=== PATIENT | male | born 1945 | race Caucasian/White ===

== ENCOUNTER 2021-11-11 12:15 | Day surgery (SDC) | payer OTHER ==
[~2021-11-11] VITALS: Ht 157.5 cm; Wt 50.1 kg
[~2021-11-11 12:15] MED LIST: AMLO5 PO; DICL75ER PO; HYDCHL25 PO; HYDMOR2 PO; OXYACE5T PO; Prednisone20 MG PO; Robaxin500 MG PO
[2021-11-11] MEDS ORDERED: METO25ER (12:59)
[2021-11-11] MEDS ORDERED: ALBU2.5V5 (13:00)
[2021-11-11] MEDS ORDERED: SYMBICORT 80-10.2 GM (13:00)
--- NOTE | 2021-11-11 13:10 | NUR ---
11/11/21 1310 SITA CARDOSO TETRACAINE DROP AT 1308 PLEDGETTE PLACED AT 1310
== END 2021-11-11 14:03 | disposition home or self-care (01) ==
LOC: ORSCSDS 12:15
PROVIDERS: Ophthalmology
PROC: 08RJ3JZ Replacement of Right Lens with Synthetic Substitute, Percutaneous Approach (ICD-10-PCS; principal; 2021-11-11 13:30)
DX: H25.13 Age-related nuclear cataract, bilateral (principal); J44.9 Chronic obstructive pulmonary disease, unspecified; Z87.891 Personal history of nicotine dependence; Z79.899 Other long term (current) drug therapy
CPT/HCPCS: J2001; J2250; J3010; J3301; J7040; V2632

== ENCOUNTER 2021-12-30 10:59 | Day surgery (SDC) | payer OTHER ==
[~2021-12-30] VITALS: Ht 157.5 cm; Wt 52.4 kg
[~2021-12-30 10:59] MED LIST changes: +ALBU2.5V5; +METO25ER; +SYMBICORT 80-10.2 GM
[2021-12-30] MEDS ORDERED: IPRAT-ALBUT 0.5-3 ML INH (11:58)
--- NOTE | 2021-12-30 12:05 | NUR ---
12/30/21 1205 Georgette Chinchilla CALL LIGHT WITHIN REACH. TETRACAIN ON LEFT EYE AT 1200 PLEDGETT AT 1201
== END 2021-12-30 13:52 | disposition home or self-care (01) ==
LOC: ORSCSDS 10:59
PROVIDERS: Ophthalmology
PROC: 08RK3JZ Replacement of Left Lens with Synthetic Substitute, Percutaneous Approach (ICD-10-PCS; principal; 2021-12-30 12:30)
DX: H25.12 Age-related nuclear cataract, left eye (principal); I10 Essential (primary) hypertension; J44.9 Chronic obstructive pulmonary disease, unspecified; K21.9 Gastro-esophageal reflux disease without esophagitis; Z79.899 Other long term (current) drug therapy
CPT/HCPCS: J2001; J2250; J3010; J3301; J7040; V2632

== ENCOUNTER 2022-03-06 13:58 | Emergency (ER) | payer OTHER ==
[~2022-03-06] VITALS: Ht 162.6 cm; Wt 56.7 kg
[~2022-03-06 13:58] MED LIST changes: +IPRAT-ALBUT 0.5-3 ML INH
== END 2022-03-06 15:03 | disposition home or self-care (01) ==
LOC: ER 13:58
DX: U07.1 COVID-19 (principal); I10 Essential (primary) hypertension; J44.9 Chronic obstructive pulmonary disease, unspecified; Z91.040 Latex allergy status; Z79.899 Other long term (current) drug therapy
CPT/HCPCS: 99283

== ENCOUNTER → 2022-07-13 | Outpatient (CLI) | payer OTHER | END | disposition home or self-care (01) | LOC: PLD 08:25 → LAB SHORT 08:25 | DX: C44.619 Basal cell carcinoma of skin of left upper limb, including shoulder (principal) | CPT/HCPCS: 88305 ==

== ENCOUNTER → 2022-11-12 | Outpatient (CLI) | payer OTHER | END | disposition home or self-care (01) | LOC: LAB 08:14 → LAB SHORT 08:14 | DX: C44.319 Basal cell carcinoma of skin of other parts of face (principal) | CPT/HCPCS: 88305 ==

== ENCOUNTER → 2022-12-14 | Outpatient (CLI) | payer OTHER | END | disposition home or self-care (01) | LOC: LAB SHORT 14:44 → PLD 14:44 | DX: C44.329 Squamous cell carcinoma of skin of other parts of face (principal); L57.0 Actinic keratosis | CPT/HCPCS: 88305 ==

== ENCOUNTER → 2023-02-03 | Outpatient (CLI) | payer OTHER | END | disposition home or self-care (01) | LOC: LAB SHORT 12:12 → PLD 12:12 | DX: D48.5 Neoplasm of uncertain behavior of skin (principal) | CPT/HCPCS: 88305 ==

== ENCOUNTER → 2023-03-08 | Outpatient (CLI) | payer OTHER | LOC: LAB 14:50 | DX: I10 Essential (primary) hypertension (principal); E78.2 Mixed hyperlipidemia; R10.84 Generalized abdominal pain; R10.9 Unspecified abdominal pain ==

== ENCOUNTER → 2023-03-22 | Outpatient (CLI) | payer OTHER ==
[2023-03-22 20:09] LABS: Albumin, Blood 3.1 g/dL (3.4-5.0); Albumin/Globulin Ratio 0.8 (0.8-1.8); Bilirubin, Total 0.3 mg/dL (0.1-1.0); Bun/Creatinine Ratio 20.1 (12.0-20.0); Calcium, Blood 9.5 mg/dL (8.5-10.1); Creatinine, Blood 0.6 mg/dL (0.60-1.20); Globulin, Blood 3.8 g/dL (2.2-4.0); Potassium, Blood 3.4 mmol/L (3.5-5.5); Total Protein, Blood 6.9 g/dL (6.4-8.2)
== END ==
LOC: LAB 18:45 → LAB SHORT 18:45
PROVIDERS: Family Medicine
DX: I10 Essential (primary) hypertension (principal)
CPT/HCPCS: 80053

== ENCOUNTER → 2023-05-01 | Outpatient (CLI) | payer OTHER ==
[~2023-05-01] MED LIST changes: -ALBU2.5V5; +ALBU2.5V5 INH; +AMOCLA875 PO; +CEFDINIR300 M4 PO; +CYCL10 PO; +DUTASTERIDE0.5 M3 PO; +IBUP600 PO; +IPRATROPIUM BROMIDE INH; +KLOR-CON 1010 ME9 PO; +MAGNESIUM OXID500 MG PO; +MELATONIN5 M1 PO; +METOPROLOL TART25 MG PO; +MIRTAZAPINE PO; +OXYCODONE-ACET1 EAC3 PO; +PANT40 PO; +POTCHL20ER PO; +PRED20 PO; +Prednisone10 MG PO; +SODCHL1 PO; +Ventolin/Prove6.7 GM INH; +Zithromax Tri-500 MG PO; +Zofran4 MG PO
[2023-05-01 16:40] LABS: BASOPHILS ABSOLUTE AUTO 0.02 K/mm3 (0.00-0.23); BASOPHILS PERCENT AUTO 0 % (0-2); EOSINOPHILS PERCENT AUTO 0 % (0-6); Hematocrit 37.7 % (37.0-53.0); Hemoglobin 12.5 g/dL (13.5-17.5); IMMATURE GRAN ABSOLUTE AUTO 0.04 K/mm3 (0.00-0.10); IMMATURE GRAN PERCENT AUTO 0 % (0-1); LYMPHOCYTES ABSOLUTE AUTO 1.83 K/mm3 (0.84-5.20); LYMPHOCYTES PERCENT AUTO 21 % (21-46); MONOCYTES ABSOLUTE AUTO 0.78 K/mm3 (0.16-1.47); MONOCYTES PERCENT AUTO 9 % (4-13); Mean Corpuscular HGB 29.6 pg (26.0-34.0); Mean Corpuscular HGB Conc 33.2 g/dL (31.5-36.5); Mean Corpuscular Volume 89 fL (80-100); Mean Platelet Volume 9.5 fL (9.1-12.4); NEUTROPHILS ABSOLUTE AUTO 6.26 K/mm3 (1.96-9.15); NEUTROPHILS PERCENT AUTO 70 % (41-73); Platelet Count 533 K/mm3 (150-400); RDW Coefficient Variation 13.2 % (11.7-14.2); RDW Standard Deviation 43.3 fL (35.1-46.3); Red Blood Cell Count 4.23 M/mm3 (4.30-5.90); White Blood Cell Count 8.93 K/mm3 (4.00-11.30)
[2023-05-01 16:47] LABS: Albumin, Blood 3.1 g/dL (3.4-5.0); Albumin/Globulin Ratio 0.7 (0.8-1.8); Bilirubin, Total 0.5 mg/dL (0.1-1.0); Bun/Creatinine Ratio 36.6 (12.0-20.0); Calcium, Blood 9.4 mg/dL (8.5-10.1); Creatinine, Blood 0.49 mg/dL (0.60-1.20); Globulin, Blood 4.6 g/dL (2.2-4.0); Potassium, Blood 3.7 mmol/L (3.5-5.5); Total Protein, Blood 7.7 g/dL (6.4-8.2)
== END | disposition home or self-care (01) ==
LOC: LAB SHORT 16:00 → LAB 16:00
PROVIDERS: Physician Assistant
DX: R07.89 Other chest pain (principal)
CPT/HCPCS: 80053; 84484; 85025

== ENCOUNTER 2023-05-02 14:16 | Inpatient (IN) | payer OTHER ==
[~2023-05-02] VITALS: Wt 49.0 kg
[~2023-05-02 14:16] MED LIST changes: -MAGNESIUM OXID500 MG PO; -MELATONIN5 M1 PO; -PANT40 PO; -POTCHL20ER PO; -Zofran4 MG PO
[2023-05-02 14:59] VITALS: BP 175/84
[2023-05-02 15:39] LABS: BASOPHILS ABSOLUTE AUTO 0.03 K/mm3 (0.00-0.23); BASOPHILS PERCENT AUTO 0 % (0-2); EOSINOPHILS ABSOLUTE AUTO 0.07 K/mm3 (0.00-0.68); EOSINOPHILS PERCENT AUTO 1 % (0-6); Hematocrit 37.2 % (37.0-53.0); Hemoglobin 12.2 g/dL (13.5-17.5); IMMATURE GRAN ABSOLUTE AUTO 0.05 K/mm3 (0.00-0.10); IMMATURE GRAN PERCENT AUTO 1 % (0-1); LYMPHOCYTES ABSOLUTE AUTO 2.27 K/mm3 (0.84-5.20); LYMPHOCYTES PERCENT AUTO 28 % (21-46); MONOCYTES PERCENT AUTO 10 % (4-13); Mean Corpuscular HGB 29.5 pg (26.0-34.0); Mean Corpuscular HGB Conc 32.8 g/dL (31.5-36.5); Mean Corpuscular Volume 90 fL (80-100); Mean Platelet Volume 8.5 fL (9.1-12.4); NEUTROPHILS ABSOLUTE AUTO 4.82 K/mm3 (1.96-9.15); NEUTROPHILS PERCENT AUTO 60 % (41-73); Platelet Count 485 K/mm3 (150-400); RDW Coefficient Variation 13.2 % (11.7-14.2); RDW Standard Deviation 43.1 fL (35.1-46.3); Red Blood Cell Count 4.14 M/mm3 (4.30-5.90); White Blood Cell Count 8.04 K/mm3 (4.00-11.30)
[2023-05-02 16:05] LABS: Albumin, Blood 3.2 g/dL (3.4-5.0); Albumin/Globulin Ratio 0.8 (0.8-1.8); Bilirubin, Total 0.5 mg/dL (0.1-1.0); Bun/Creatinine Ratio 39.3 (12.0-20.0); Calcium, Blood 8.9 mg/dL (8.5-10.1); Creatinine, Blood 0.51 mg/dL (0.60-1.20); Globulin, Blood 4.1 g/dL (2.2-4.0); Potassium, Blood 3.7 mmol/L (3.5-5.5); Total Protein, Blood 7.3 g/dL (6.4-8.2)
--- NOTE | 2023-05-02 19:20 | NUR ---
SHIFT SUMMARY 1440 RECEIVED PT TO 303 VIA W/C DIRECT ADMIT FROM URGENT CARE. DR PENA NOTIFIED WHEN PT ARRIVED. ORDERS PLACED AND THEN DR PENA CAME TO TO SEE PT AND DISCUSS PLAN OF CARE. PT RECENTLY D/C'D ON 04/29 FROM [facility] AND NOW RETURNED D/T N/V AND GERD. PT REPORTED EATING TO MUCH FOOD WITH OIL ON WEDNESDAY AND BECOMING SICK AND VOMITING WITH ALL PO INTAKE. LOW FAT BLAND DIET ORDERED; PT ONLY ABLE TO TOLERATE BITES TONIGHT. IV ABX ORDERED AND GIVEN PER EMAR TO COMPLETE TREATMENT FOR [facility]. RT TX'S ORDERED AND GIVEN PER EMAR AND PT REQUEST. FAMILY TO WITH PT FOR A WHILE, UNTIL EVENING. PT UP TO BTHRM INDEPENDENTLY. DENIED FURTHER NEEDS AT THIS TIME. CALL LT IN REACH. REPORT GIVEN TO ONCOMING RN.
[2023-05-02 20:28] VITALS: BP 159/88
[2023-05-03 04:30] VITALS: BP 153/80
--- NOTE | 2023-05-03 06:38 | NUR ---
SHIFT SUMMARY PT REQUESTED MELATONIN TO HELP HIM SLEEP, BUT STATED HE WAS UNABLE TO KEEP PILLS DOWN. ADMINISTERED ZOFRAN AND WAITED AND ASKED PT TO TRY HIS METOPROLOL. PT WAS ABLE TO KEEP THIS DOWN. NORMA GUALLPA NOTIFIED TO REQUEST MELATONIN. MEDICATION GIVEN AND NO VOMITING FOR ENTIRE SHIFT.
[2023-05-03 07:41] VITALS: BP 149/80
[2023-05-03 15:13] VITALS: BP 137/74
--- NOTE | 2023-05-03 17:43 | NUR ---
SHIFT SUMMARY PT A&OX4, VSS, TOLERATING PO, VOIDING, AMB INDEPENDENTLY, DENIES PAIN AND OR N/V. PT ADMITS IMPROVEMENT IN APPETITE AND ABILITY TO TOLERATE PO W/O NAUSEA AND OR VOMITING. DR. CHAVARRIA ROUNDED THIS AM AND PLANS FOR POSSIBLE DISCHARGE TOMORROW.
[2023-05-03 19:53] VITALS: BP 146/84
[2023-05-04 04:42] VITALS: BP 139/82
[2023-05-04 05:14] LABS: BASOPHILS ABSOLUTE AUTO 0.02 K/mm3 (0.00-0.23); BASOPHILS PERCENT AUTO 0 % (0-2); EOSINOPHILS ABSOLUTE AUTO 0.13 K/mm3 (0.00-0.68); EOSINOPHILS PERCENT AUTO 2 % (0-6); Hematocrit 31.5 % (37.0-53.0); Hemoglobin 10.6 g/dL (13.5-17.5); IMMATURE GRAN ABSOLUTE AUTO 0.05 K/mm3 (0.00-0.10); IMMATURE GRAN PERCENT AUTO 1 % (0-1); LYMPHOCYTES ABSOLUTE AUTO 2.12 K/mm3 (0.84-5.20); LYMPHOCYTES PERCENT AUTO 26 % (21-46); MONOCYTES ABSOLUTE AUTO 1.18 K/mm3 (0.16-1.47); MONOCYTES PERCENT AUTO 14 % (4-13); Mean Corpuscular HGB 29.4 pg (26.0-34.0); Mean Corpuscular HGB Conc 33.7 g/dL (31.5-36.5); Mean Corpuscular Volume 87 fL (80-100); Mean Platelet Volume 9.1 fL (9.1-12.4); NEUTROPHILS ABSOLUTE AUTO 4.72 K/mm3 (1.96-9.15); NEUTROPHILS PERCENT AUTO 57 % (41-73); Platelet Count 447 K/mm3 (150-400); RDW Coefficient Variation 13.2 % (11.7-14.2); RDW Standard Deviation 41.8 fL (35.1-46.3); Red Blood Cell Count 3.61 M/mm3 (4.30-5.90); White Blood Cell Count 8.22 K/mm3 (4.00-11.30)
[2023-05-04 05:50] LABS: Albumin, Blood 2.8 g/dL (3.4-5.0); Anion Gap 4 mmol/L (6-16); Blood Urea Nitrogen 27 mg/dL (8-24); Bun/Creatinine Ratio 35.7 (12.0-20.0); CO2, Blood 33 mmol/L (21-32); Calcium, Blood 8.8 mg/dL (8.5-10.1); Chloride, Blood 94 mmol/L (98-108); Creatinine, Blood 0.76 mg/dL (0.60-1.20); Glomerular Filtration Rate 91 (60-); Glucose, Blood 123 mg/dL (70-99); Magnesium, Blood 1.7 mg/dL (1.6-2.4); Phosphorus, Blood 2.5 mg/dL (2.5-4.9); Potassium, Blood 3.1 mmol/L (3.5-5.5); Sodium, Blood 131 mmol/L (136-145)
--- NOTE | 2023-05-04 06:34 | NUR ---
SHIFT SUMMARY NO NAUSEA OR VOMITING THIS SHIFT. STATES ALL CHIEF COMPLAINTS RESOLVED. SLEPT WELL WITH PRN MELATONIN
[2023-05-04 07:47] VITALS: BP 149/68
[2023-05-04] MEDS ORDERED: MELATONIN5 M1 PO (11:37)
[2023-05-04] MEDS ORDERED: MAGNESIUM OXID500 MG PO (11:37)
[2023-05-04] MEDS ORDERED: Zofran4 MG PO (11:39)
[2023-05-04] MEDS ORDERED: PANT40 PO (11:40)
[2023-05-04] MEDS ORDERED: POTCHL20ER PO (11:41)
== END 2023-05-04 13:03 | disposition home or self-care (01) | DRG 194 ==
LOC: MEDS 14:16 → ENPENDDIS 05-04 11:25 → MEDS 05-04 13:03
PROVIDERS: Family Medicine; ADMIT Internal Medicine
DX: J18.9 Pneumonia, unspecified organism (principal); J44.0 Chronic obstructive pulmonary disease with (acute) lower respiratory infection; I10 Essential (primary) hypertension; R11.2 Nausea with vomiting, unspecified; E87.6 Hypokalemia; Z98.890 Other specified postprocedural states; Z91.040 Latex allergy status; Z79.899 Other long term (current) drug therapy; Z79.51 Long term (current) use of inhaled steroids; Z79.52 Long term (current) use of systemic steroids
CPT/HCPCS: 36415; 76705; 80053; 80069; 83735; 84145; 85025; 94640; 94664; 94760; A9270; C9113; J0696; J1650; J2405; J7050; J7512

== ENCOUNTER → 2024-09-04 | Outpatient (CLI) | payer OTHER ==
[~2024-09-04] MED LIST changes: +MAGNESIUM OXID500 MG PO; +MELATONIN5 M1 PO; +PANT40 PO; +POTCHL20ER PO; +Zofran4 MG PO
== END ==
LOC: LAB SHORT 14:00 → LAB 14:00
DX: L08.0 Pyoderma (principal)
CPT/HCPCS: 87070; 87077; 87147; 87186

== ENCOUNTER → 2024-11-21 | Outpatient (CLI) | payer OTHER ==
[2024-11-21 18:17] LABS: Creatinine, Urine Random 41.3 mg/dL (27.00-270.00)
== END ==
LOC: LAB 15:38 → LAB SHORT 15:38
PROVIDERS: Family Medicine
DX: E87.1 Hypo-osmolality and hyponatremia (principal)
CPT/HCPCS: 82570; 83935; 84300

== ENCOUNTER 2025-03-18 08:14 | Emergency (ER) | payer OTHER ==
[~2025-03-18] VITALS: Ht 154.9 cm; Wt 48.1 kg
[2025-03-18 08:50] VITALS: BP 132/84
[2025-03-18] MEDS ORDERED: Ketorolac Tromethamine 30mg Vial IM ONE (09:45)
[2025-03-18] MEDS ORDERED: Voltaren100 GM TOP (09:58)
[2025-03-18] MEDS ORDERED: Percocet 5-3251 EACH PO (09:58)
== END 2025-03-18 11:03 | disposition home or self-care (01) ==
LOC: ER 08:14
DX: M25.511 Pain in right shoulder (principal); I10 Essential (primary) hypertension; J44.9 Chronic obstructive pulmonary disease, unspecified; Z87.891 Personal history of nicotine dependence
CPT/HCPCS: 73030; 96372; 99283-25; A9270; J1885